=== PATIENT | male | born 1965 | race Caucasian/White ===

== ENCOUNTER 2022-05-06 15:53 | Inpatient (IN) | payer OTHER ==
[~2022-05-06] VITALS: Ht 162.6 cm; Wt 64.7 kg
[2022-05-06] MEDS ORDERED: ACETAMINOPHEN 325MG TABLET PO STA (22:56)
[2022-05-06] MEDS ORDERED: SODIUM CHLORIDE 0.9% 1,000 ML IV ONE (23:00)
[2022-05-07 00:05] LABS: BASOPHILS % 0.4 % (0.0-2.0); EOSINOPHILS % 1.4 % (0.0-5.0); HEMATOCRIT. 36.9 % (42.0-52.0); HEMOGLOBIN. 12.6 g/dL (14.0-18.0); MEAN CORPUSCULAR HEMOGLOBIN 30.3 pg (28.0-32.0); MEAN CORPUSCULAR VOLUME 88.9 fL (80.0-94.0); MEAN PLATELET VOLUME 9.5 fl (7.4-10.4); MONOCYTES % 5.3 % (2.0-8.0); NEUTROPHILS % 69.9 % (40.0-76.0); PLATELET 221 x1000/uL (130-400); RED BLOOD CELL COUNT 4.15 mill/uL (4.7-6.1); RED CELL DISTRIBUTION WIDTH 13.8 % (11.6-14.6)
[2022-05-07 01:11] LABS: CHLORIDE 97 mEq/L (98-107)
[2022-05-07] MEDS ORDERED: ASPIRIN 81MG TABLET PO ONE (01:45)
[2022-05-07 02:06] LABS: CLARITY URINE CLEAR (CLEAR); COLOR URINE YELLOW (YELLOW); KETONES URINE NEGATIVE (NEGATIVE); LEUKOCYTE ESTERASE URINE TRACE (NEGATIVE); NITRITE URINE NEGATIVE (NEGATIVE); OCCULT BLOOD URINE 1+ (NEGATIVE); PH URINE 5.5 (4.5-8.0); PROTEIN URINE 3+ (NEGATIVE); SPECIFIC GRAVITY URINE 1.034 (1.005-1.030); UROBILINOGEN URINE 0.2 E.U./dL (0.2-1.0)
[2022-05-07] MEDS ORDERED: INSULIN LISPRO 100 UNITS/ML SUBCUT ONE (02:45)
[2022-05-07] MEDS ORDERED: HYDRALAZINE 20MG/ML VIAL IV ONE (03:15)
[2022-05-07 09:23] VITALS: BP 193/112
[2022-05-07] MEDS ORDERED: ONDANSETRON HCL 4MG/2ML INJ IV PRN (09:30)
[2022-05-07] MEDS ORDERED: ACETAMINOPHEN 325MG TABLET PO PRN (09:30)
[2022-05-07] MEDS: AMLODIPINE 10MG TABLET PO SCH (09:57)
[2022-05-07] MEDS: INSULIN GLARGINE 100 UNITS/ML SUBCUT SCH ×2 (10:15→22:33)
[2022-05-07 12:11] VITALS: BP 182/100
[2022-05-07] MEDS ORDERED: DEXTROSE 50% WATER 50ML SYRINGE IV PRN (12:30)
[2022-05-07] MEDS: BLOOD SUGAR DIAGNOSTIC STRIP TEST SCH ×3 (13:02→22:30)
[2022-05-07] MEDS: INSULIN LISPRO 100 UNITS/ML SUBCUT SCH ×3 (13:50→22:30)
[2022-05-07] MEDS ORDERED: HYDRALAZINE HCL 100MG TABLET PO SCH (14:00)
[2022-05-07 14:17] VITALS: BP 166/110
[2022-05-07 16:00] VITALS: BP 144/88
[2022-05-07 20:00] VITALS: BP 101/70
[2022-05-07] MEDS: HYDRALAZINE HCL 50MG TABLET PO SCH (22:24)
[2022-05-08] VITALS: BP 124/77
[2022-05-08 04:00] VITALS: BP 152/96
[2022-05-08] MEDS: INSULIN LISPRO 100 UNITS/ML SUBCUT SCH ×4 (06:48→21:01)
[2022-05-08] MEDS: BLOOD SUGAR DIAGNOSTIC STRIP TEST SCH ×4 (06:48→21:03)
[2022-05-08] MEDS: HYDRALAZINE HCL 50MG TABLET PO SCH ×4 (06:49→21:03)
[2022-05-08 08:11] VITALS: BP 135/91
[2022-05-08] MEDS: ASPIRIN 81MG TABLET PO SCH (09:15)
[2022-05-08] MEDS: AMLODIPINE 10MG TABLET PO SCH (09:15)
[2022-05-08] MEDS: INSULIN GLARGINE 100 UNITS/ML SUBCUT SCH ×2 (09:20→21:01)
[2022-05-08 12:00] VITALS: BP 100/66
[2022-05-08 16:11] VITALS: BP 120/70
[2022-05-08 20:00] VITALS: BP 167/92
[2022-05-08] MEDS: ATORVASTATIN CALCIUM 40MG TABLET PO SCH (21:03)
[2022-05-09] VITALS: BP 146/83
[2022-05-09 04:00] VITALS: BP 122/63
[2022-05-09] MEDS: BLOOD SUGAR DIAGNOSTIC STRIP TEST SCH ×4 (06:19→20:58)
[2022-05-09] MEDS: HYDRALAZINE HCL 50MG TABLET PO SCH ×3 (06:19→21:07)
[2022-05-09 08:00] VITALS: BP 153/78
[2022-05-09] MEDS: ASPIRIN 81MG TABLET PO SCH (10:07)
[2022-05-09] MEDS: CLOPIDOGREL 75MG TABLET PO SCH (10:08)
[2022-05-09] MEDS: AMLODIPINE 10MG TABLET PO SCH (10:08)
[2022-05-09] MEDS: INSULIN GLARGINE 100 UNITS/ML SUBCUT SCH ×2 (10:09→21:05)
[2022-05-09] MEDS: INSULIN LISPRO 100 UNITS/ML SUBCUT SCH ×4 (10:09→21:05)
[2022-05-09 12:00] VITALS: BP 162/89
[2022-05-09 16:00] VITALS: BP 124/76
[2022-05-09] MEDS ORDERED: ASPI-1406 MT (17:35)
[2022-05-09] MEDS ORDERED: LANTUSUD SUBCUT (17:35)
[2022-05-09] MEDS ORDERED: CLOP-31 MT (17:35)
[2022-05-09] MEDS ORDERED: ATOR80TA MT (17:35)
[2022-05-09] MEDS ORDERED: AMLO10TA80 MT (17:35)
[2022-05-09] MEDS ORDERED: HYDR-4135 MT (17:36)
[2022-05-09 20:00] VITALS: BP 148/89
[2022-05-09] MEDS ORDERED: CEFTRIAXONE 1,000 MG in DEXTROSE 5% WATER 50 ML IV SCH (20:00)
[2022-05-09] MEDS: ATORVASTATIN CALCIUM 40MG TABLET PO SCH (20:51)
[2022-05-10] VITALS: BP 124/75
[2022-05-10 04:00] VITALS: BP 124/80
[2022-05-10] MEDS: HYDRALAZINE HCL 50MG TABLET PO SCH ×2 (05:59→13:27)
[2022-05-10] MEDS: BLOOD SUGAR DIAGNOSTIC STRIP TEST SCH ×2 (05:59→11:50)
[2022-05-10] MEDS: INSULIN LISPRO 100 UNITS/ML SUBCUT SCH ×2 (07:20→13:28)
[2022-05-10 08:12] VITALS: BP 133/84
[2022-05-10] MEDS: CLOPIDOGREL 75MG TABLET PO SCH (09:10)
[2022-05-10] MEDS: AMLODIPINE 10MG TABLET PO SCH (09:10)
[2022-05-10] MEDS: ASPIRIN 81MG TABLET PO SCH (09:10)
[2022-05-10] MEDS ORDERED: LEVO-65 MT (09:22)
[2022-05-10] MEDS: INSULIN GLARGINE 100 UNITS/ML SUBCUT SCH (09:30)
[2022-05-10 12:31] VITALS: BP 126/73
[2022-05-10 13:13] VITALS: BP 126/73
== END 2022-05-10 14:10 | disposition home or self-care (01) | DRG 45 ==
LOC: ER 15:53 → 3WST 05-07 03:03 → EDBEDREQTM 05-07 03:06 → EDBEDREQ 05-07 03:06 → ENRESERV 05-07 06:39
PROVIDERS: ADMIT Internal Medicine; ATTEND Internal Medicine
PROC: 4A00X4Z Measurement of Central Nervous Electrical Activity, External Approach (ICD-10-PCS; principal; 2022-05-09)
DX: I63.81 Other cerebral infarction due to occlusion or stenosis of small artery (principal); E44.1 Mild protein-calorie malnutrition; E87.1 Hypo-osmolality and hyponatremia; E11.65 Type 2 diabetes mellitus with hyperglycemia; D64.9 Anemia, unspecified; E78.5 Hyperlipidemia, unspecified; H53.8 Other visual disturbances; I34.0 Nonrheumatic mitral (valve) insufficiency; I07.1 Rheumatic tricuspid insufficiency; I10 Essential (primary) hypertension; Z91.14 Patient's other noncompliance with medication regimen; Z59.00 Homelessness unspecified; Z68.24 Body mass index [BMI] 24.0-24.9, adult
CPT/HCPCS: 36415; 70551; 71045; 80053; 80061; 81003; 82962; 83036; 83880; 84484; 85025; 93005; 93306; 93880; 95816; 97162; 97165; 99285; J0696; J1815; J7030; J7060

== ENCOUNTER 2023-04-16 11:44 | Emergency (ER) | payer MEDICAID, OTHER ==
[~2023-04-16] VITALS: Ht 167.6 cm; Wt 68.0 kg
[~2023-04-16 11:44] MED LIST: AMLO10TA80 MT; ASPI-1406 MT; ATOR80TA MT; CLOP-31 MT; HYDR-4135 MT; LANTUSUD SUBCUT; LEVO-65 MT
[2023-04-16 12:00] VITALS: TEMP 98.8; O2SAT 99
[2023-04-16 13:55] VITALS: BP 177/111; PULSE 121; RESP 20
[2023-04-16] MEDS ORDERED: IBUPROFEN 600MG TABLET PO STA (13:55)
[2023-04-16 14:34] LABS: ALANINE AMINOTRANSFERASE 10 IU/L (10-49); ALBUMIN 3.4 g/dL (3.2-4.8); ASPARTATE AMINOTRANSFERASE 20 IU/L (<34); BILIRUBIN TOTAL 0.5 mg/dL (0.1-1.0); CALCIUM 8.6 mg/dL (8.7-10.4); CARBON DIOXIDE 27 mEq/L (21-32); CHLORIDE 101 mEq/L (98-107); CREATININE 1.3 mg/dL (0.6-1.3); GLUCOSE 259 mg/dL (70-105); POTASSIUM 3.6 mEq/L (3.5-5.1); PROTEIN TOTAL 6.5 g/dL (6.0-8.3); SODIUM 134 mEq/L (136-145); UREA NITROGEN BLOOD 13 mg/dL (9-23)
[2023-04-16 14:41] LABS: BASOPHILS % 0.4 % (0.0-2.0); EOSINOPHILS % 0.8 % (0.0-5.0); HEMATOCRIT. 37.5 % (42.0-52.0); HEMOGLOBIN. 12.7 g/dL (14.0-18.0); LYMPHOCYTES % 10.7 % (20.0-50.0); MEAN CORPUSCULAR HEMOGLOBIN 30.9 pg (28.0-32.0); MEAN CORPUSCULAR HGB CONC 33.8 g/dL (31.0-37.0); MEAN CORPUSCULAR VOLUME 91.4 fL (80.0-94.0); MEAN PLATELET VOLUME 9.5 fl (7.4-10.4); NEUTROPHILS % 80.1 % (40.0-76.0); PLATELET 182 x1000/uL (130-400); RED CELL DISTRIBUTION WIDTH 13.5 % (11.6-14.6); WHITE BLOOD COUNT 9.2 x1000/uL (4.5-11.0)
[2023-04-16] MEDS ORDERED: SODIUM CHLORIDE 0.9% 1,000 ML IV ONE (15:00)
== END 2023-04-16 16:49 | disposition left against medical advice (07) ==
LOC: ER 12:53
DX: E11.65 Type 2 diabetes mellitus with hyperglycemia (principal); R52 Pain, unspecified; I10 Essential (primary) hypertension; E11.9 Type 2 diabetes mellitus without complications; Z98.890 Other specified postprocedural states
CPT/HCPCS: 99284; 71045; 80053; 82962; 85025; 36415; J7030